=== PATIENT | female | born 1970 | race Caucasian/White ===

== ENCOUNTER → 2017-09-03 | Outpatient (CLI) | payer OTHER ==
[2017-09-03 09:58] LABS: ALT 34 U/L (9-52); AST 29 U/L (14-36); Albumin 4.7 g/dL (3.5-5.0); Alkaline Phosphatase 69 U/L (38-126); Anion Gap 9 mmol/L; Blood Urea Nitrogen 16 mg/dL (7-17); Calcium 9.7 mg/dL (8.4-10.2); Carbon Dioxide 29 mmol/L (22-30); Chloride 101 mmol/L (98-107); Cholesterol 263 mg/dL (<200); Glucose 88 mg/dL (74-99); Potassium 4.4 mmol/L (3.5-5.1); Sodium 139 mmol/L (137-145); Total Bilirubin 0.5 mg/dL (0.2-1.3); Total Protein 7.1 g/dL (6.3-8.2); Triglycerides 43 mg/dL (<150)
[2017-09-03 10:05] LABS: LDL Cholesterol,Calculated 102 mg/dL (0-99)
[2017-09-03 10:06] LABS: T4, Free (Free Thyroxine) 0.98 ng/dL (0.78-2.19)
[2017-09-03 10:20] LABS: HCT 39.6 % (34.0-46.0); HGB 12.8 gm/dL (11.4-16.0); MCH 29.4 pg (25.0-35.0); MCHC 32.4 g/dL (31.0-37.0); MCV 90.8 fL (80.0-100.0); Mean Platelet Volume 7.5; Platelet Count 280 k/uL (150-450); RBC 4.36 m/uL (3.80-5.40); RDW 12.7 % (11.5-15.5); WBC 3.5 k/uL (3.8-10.6)
[2017-09-03 10:30] LABS: HDL Cholesterol 152 mg/dL (40-60)
[2017-09-03 11:44] LABS: Eosinophils # (M) 0.21 k/uL (0-0.7); Monocytes # (M) 0.42 k/uL (0-1.0); Neutrophils # (M) 1.51 k/uL (1.3-7.7); Neutrophils % (M) 43 %; Nucleated Red Blood Cells 0 /100 WBC (0-0); Total Cells Counted 200
[2017-09-03 11:45] LABS: Anisocytosis (M) Present; Poikilocytosis (M) Present
== END | disposition home or self-care (01) ==
LOC: LABWHC1 08:56
PROVIDERS: ATTEND Family Medicine
DX: Z00.00 Encounter for general adult medical examination without abnormal findings (principal); E03.9 Hypothyroidism, unspecified
CPT/HCPCS: 36415; 80053; 80061; 82306; 84439; 84443; 85025

== ENCOUNTER → 2018-01-06 | Outpatient (CLI) | payer OTHER ==
[2018-01-06 13:51] LABS: T4, Free (Free Thyroxine) 0.89 ng/dL (0.78-2.19)
== END | disposition home or self-care (01) ==
LOC: LABWHC1 12:12
PROVIDERS: ATTEND Family Medicine
DX: E03.8 Other specified hypothyroidism (principal)
CPT/HCPCS: 36415; 84439; 84443; 84481

== ENCOUNTER → 2018-09-10 | Outpatient (CLI) | payer OTHER ==
[2018-09-10 08:42] LABS: HCT 45.2 % (34.0-46.0); HGB 14.5 gm/dL (11.4-16.0); MCHC 32.1 g/dL (31.0-37.0); MCV 93.3 fL (80.0-100.0); Mean Platelet Volume 7.2; Platelet Count 225 k/uL (150-450); RBC 4.84 m/uL (3.80-5.40); RDW 12.9 % (11.5-15.5)
[2018-09-10 10:21] LABS: Eosinophils # (M) 0.08 k/uL (0-0.7); Lymphocytes # (M) 0.84 k/uL (1.0-4.8); Monocytes # (M) 0.44 k/uL (0-1.0); Neutrophils # (M) 2.64 k/uL (1.3-7.7); Neutrophils % (M) 66 %; Nucleated Red Blood Cells 0 /100 WBC (0-0); Total Cells Counted 100
[2018-09-10 10:24] LABS: Poikilocytosis (M) Present
[2018-09-10 14:06] LABS: ALT 20 U/L (8-44); AST 24 U/L (13-35); Albumin/Globulin Ratio 2.47 (1.60-3.17); Alkaline Phosphatase 72 U/L (41-126); Calcium 9.5 mg/dL (8.7-10.3); Carbon Dioxide 30.4 mmol/L (21.6-31.8); Chloride 105 mmol/L (96-109); Cholesterol 228 mg/dL (0-200); Globulin 1.9 g/dL (1.6-3.3); Glucose 81 mg/dL (70-110); Potassium 4.4 mmol/L (3.5-5.5); Sodium 141 mmol/L (135-145); Total Bilirubin 0.8 mg/dL (0.3-1.2); Total Protein 6.6 g/dL (6.2-8.2); Triglycerides <50.0 mg/dL (0.0-149.0); VLDL Calculation 9.98 mg/dL (5.00-40.00)
== END ==
LOC: LABWHC1 07:30
PROVIDERS: ATTEND Family Medicine
DX: Z00.00 Encounter for general adult medical examination without abnormal findings (principal); E03.9 Hypothyroidism, unspecified
CPT/HCPCS: 36415; 80053; 80061; 82306; 84439; 84443; 84481; 85025

== ENCOUNTER → 2019-08-12 | Outpatient (CLI) | payer OTHER ==
--- NOTE | 2019-08-18 12:03 | MM ---
Reason for exam: screening (asymptomatic). Last mammogram was performed 11 months ago. History: Patient is nulliparous. Saline implants in both breasts, 2018. Benign excisional biopsy of the left breast. Physical Findings: A clinical breast exam by your physician is recommended on an annual basis and results should be correlated with mammographic findings. MG 3D Screen Mammo Imp/Cad Bilateral CC, MLO, and ID view(s) were taken. Prior study comparison: August 31, 2018, mammogram, performed at [facility]. August 25, 2017, mammogram, performed at [facility]. The breast tissue is heterogeneously dense. This may lower the sensitivity of mammography. No suspicious abnormality. Bilateral retropectoral saline implants. Left biopsy marker noted. ASSESSMENT: Negative, BI-RAD 1 RECOMMENDATION: Routine screening mammogram of both breasts in 1 year.
== END | disposition home or self-care (01) ==
LOC: RADMAMWWP 12:46
PROVIDERS: ATTEND Internal Medicine
DX: Z12.31 Encounter for screening mammogram for malignant neoplasm of breast (principal); Z98.82 Breast implant status
CPT/HCPCS: 77063; 77067

== ENCOUNTER → 2020-08-25 | Outpatient (CLI) | payer OTHER ==
--- NOTE | 2020-08-25 14:19 | MR ---
MRI left hip HISTORY: Pain in left thigh, posterior left thigh pain Multiplanar multisequence imaging obtained through the pelvis with associated images through the left proximal lower extremity rather than tailored to the head There are no plain films available for correlation. Semimembranosus semitendinosus tendons show a symmetric appearance. Muscle signal is symmetric. There is artifact over the proximal left lower extremity on fat saturation sequences. Bone marrow signal i s maintained. No free fluid within the pelvis. Urinary bladder shows a thickened wall possibly due to lack of distention. There is no pelvic adenopathy. No abnormal fluid collections. IMPRESSION: No abnormality evident to account for patient's symptoms.
== END | disposition home or self-care (01) ==
LOC: RADMRIMAIN 06:12
PROVIDERS: ATTEND Orthopaedic Surgery
DX: M79.652 Pain in left thigh (principal)

== ENCOUNTER → 2020-10-26 | Outpatient (CLI) | payer OTHER ==
--- NOTE | 2020-10-27 15:03 | MM ---
Reason for exam: screening (asymptomatic). Last mammogram was performed 1 year and 2 months ago. History: Patient is nulliparous. Silicone gel implants in both breasts, April 2020. Saline implants in both breasts, 2017. Benign excisional biopsy of the left breast. Taking estrogen. Taking progesterone. Physical Findings: A clinical breast exam by your physician is recommended on an annual basis and results should be correlated with mammographic findings. MG 3D Screen Mammo Imp/Cad Bilateral CC, MLO, and ID view(s) were taken. Prior study comparison: August 12, 2019, bilateral MG 3d screen mammo imp/cad. August 31, 2018, mammogram, performed at [facility]. There are scattered fibroglandular densities. No significant changes when compared with prior studies. ASSESSMENT: Benign, BI-RAD 2 RECOMMENDATION: Routine screening mammogram of both breasts in 1 year.
== END | disposition home or self-care (01) ==
LOC: RADMAMWWP 15:45
PROVIDERS: ATTEND Family Medicine
DX: Z12.31 Encounter for screening mammogram for malignant neoplasm of breast (principal)
CPT/HCPCS: 77063; 77067

== ENCOUNTER → 2021-12-03 | Outpatient (CLI) | payer OTHER ==
--- NOTE | 2021-12-04 09:29 | MM ---
Reason for Exam: Screening (asymptomatic). Last mammogram was performed 1 year(s) and 1 month(s) ago. Patient History: Menarche at age 12. Patient has no children. Hysterectomy at age 43. Currently using Estrogen. Currently using Progesterone. Benign Excisional Biopsy on the left side. 04/2020, Bilateral Implants. 2018, Bilateral Implants. Risk Values: Sue 5 year model risk: 1.3%. NCI Lifetime model risk: 11.6%. Prior Study Comparison: 08/31/2018 Screening Mammogram, [facility]. 08/12/2019 Bilateral Screening Mammogram, [facility]. 10/26/2020 Bilateral Screening Mammogram, [facility]. Tissue Density: The breast tissue is heterogeneously dense. This may lower the sensitivity of mammography. Findings: Analyzed By CAD. There is no suspicious group of microcalcifications or new suspicious mass in either breast. Benign calcifications bilaterally. Overall Assessment: Benign, BI-RAD 2 Management: Screening Mammogram of both breasts in 1 year. A clinical breast exam by your physician is recommended on an annual basis and results should be correlated with mammographic findings. Electronically signed and approved by: Rakan Guidry M.D. Radiologis
== END | disposition home or self-care (01) ==
LOC: RADMAMWWP 14:51
PROVIDERS: ATTEND Family Medicine
DX: Z12.31 Encounter for screening mammogram for malignant neoplasm of breast (principal)
CPT/HCPCS: 77067

== ENCOUNTER → 2022-05-15 | Outpatient (CLI) | payer OTHER ==
[2022-05-15 14:40] LABS: Basophils # (A) 0.03 X 10*3/uL (0.00-0.10); Basophils % (A) 0.7 %; Eosinophils # (A) 0.26 X 10*3/uL (0.04-0.35); HCT 43.5 % (37.2-46.3); HGB 13.8 g/dL (12.0-15.0); Immature Grans, Automated 0.2 %; Lymphocytes # (A) 1.06 X 10*3/uL (0.90-5.00); Lymphocytes % (A) 24.3 %; MCH 29.7 pg (27.0-32.0); MCHC 31.7 g/dL (32.0-37.0); MCV 93.8 fL (80.0-97.0); Mean Platelet Volume 9.8 fL (9.5-12.2); Monocytes # (A) 0.41 X 10*3/uL (0.20-1.00); Monocytes % (A) 9.4 %; NRBC Per 100 WBC 0 /100 WBCS (0.0-0.0); Neutrophils # (A) 2.59 X 10*3/uL (1.80-7.70); Neutrophils % (A) 59.4 %; Platelet Count 260 X 10*3/uL (140-440); RBC 4.64 X 10*6/uL (4.10-5.20); RDW 12.4 % (11.5-14.5); WBC 4.36 X 10*3/uL (4.50-10.00)
[2022-05-15 16:20] LABS: ALT 11 U/L (8-44); AST 13 U/L (13-35); African American GFR (CKD) 95.5 (60.0-200.0); Albumin 4.5 g/dL (3.8-4.9); Albumin/Globulin Ratio 2.73 (1.60-3.17); Alkaline Phosphatase 58 U/L (41-126); BUN/Creat Ratio 15.05 Ratio (12.00-20.00); Blood Urea Nitrogen 12.4 mg/dL (9.0-27.0); C Reactive Protein <0.30 mg/dL (0.00-0.80); Chloride 104 mmol/L (96-109); Ferritin 13.3 ng/mL (10.0-291.0); Globulin 1.7 g/dL (1.6-3.3); Glucose 84 mg/dL (70-110); Non-African American GFR(CKD) 82.4 (60.0-200.0); Potassium 4.2 mmol/L (3.5-5.5); Sodium 139 mmol/L (135-145); Total Protein 6.2 g/dL (6.2-8.2)
[2022-05-15 19:33] LABS: Insulin Level 2.3 mIU/mL (3.0-25.0)
[2022-05-15 21:15] LABS: Thyroid Peroxidase Antibodies <9.0 U/mL (0.0-33.0)
== END | disposition home or self-care (01) ==
LOC: LABWHC1 08:05
PROVIDERS: ATTEND Nurse Practitioner
DX: M25.50 Pain in unspecified joint (principal); N95.9 Unspecified menopausal and perimenopausal disorder; N39.490 Overflow incontinence; M54.2 Cervicalgia; E78.2 Mixed hyperlipidemia; R68.82 Decreased libido; R14.0 Abdominal distension (gaseous)
CPT/HCPCS: 36415; 80053; 82306; 82533; 82607; 82626; 82672; 82728; 82746; 83036; 83090; 83525; 83735; 84140; 84144; 84402; 84403; 84432; 84439; 84443; 84481; 84482; 85025; 86038; 86140; 86376

== ENCOUNTER → 2022-05-29 | Outpatient (CLI) | payer OTHER ==
[2022-05-29 14:28] LABS: Basophils # (A) 0.02 X 10*3/uL (0.00-0.10); Basophils % (A) 0.6 %; Eosinophils % (A) 6.1 %; HCT 44.5 % (37.2-46.3); HGB 13.9 g/dL (12.0-15.0); Immature Grans, Automated 0 %; Lymphocytes # (A) 0.96 X 10*3/uL (0.90-5.00); Lymphocytes % (A) 29.3 %; MCH 29.9 pg (27.0-32.0); MCHC 31.2 g/dL (32.0-37.0); MCV 95.7 fL (80.0-97.0); Mean Platelet Volume 10.1 fL (9.5-12.2); Monocytes # (A) 0.29 X 10*3/uL (0.20-1.00); Monocytes % (A) 8.8 %; NRBC Per 100 WBC 0 /100 WBCS (0.0-0.0); Neutrophils # (A) 1.81 X 10*3/uL (1.80-7.70); Neutrophils % (A) 55.2 %; Platelet Count 281 X 10*3/uL (140-440); RBC 4.65 X 10*6/uL (4.10-5.20); RDW 12.7 % (11.5-14.5); WBC 3.28 X 10*3/uL (4.50-10.00)
[2022-05-30 01:26] LABS: C Reactive Protein, High Sens <0.150 mg/L (0.000-3.000); Estradiol 74.3 pg/mL
== END | disposition home or self-care (01) ==
LOC: LABWHC1 07:46
PROVIDERS: ATTEND Family Medicine
DX: M25.50 Pain in unspecified joint (principal); N95.9 Unspecified menopausal and perimenopausal disorder; N39.490 Overflow incontinence; E78.2 Mixed hyperlipidemia; M54.2 Cervicalgia; R14.0 Abdominal distension (gaseous); R68.82 Decreased libido
CPT/HCPCS: 36415; 82627; 82670; 83735; 85025; 86141; 86800

== ENCOUNTER → 2022-11-06 | Outpatient (CLI) | payer OTHER ==
[2022-11-06 10:50] LABS: Basophils # (A) 0.03 X 10*3/uL (0.00-0.10); Basophils % (A) 0.8 %; Eosinophils # (A) 0.13 X 10*3/uL (0.04-0.35); Eosinophils % (A) 3.4 %; HCT 43.6 % (37.2-46.3); HGB 14.4 g/dL (12.0-15.0); Immature Grans, Automated 0.3 %; Lymphocytes # (A) 0.86 X 10*3/uL (0.90-5.00); Lymphocytes % (A) 22.5 %; MCH 31.4 pg (27.0-32.0); Mean Platelet Volume 10.5 fL (9.5-12.2); Monocytes # (A) 0.35 X 10*3/uL (0.20-1.00); Monocytes % (A) 9.2 %; NRBC Per 100 WBC 0 /100 WBCS (0.0-0.0); Neutrophils # (A) 2.44 X 10*3/uL (1.80-7.70); Neutrophils % (A) 63.8 %; Platelet Count 248 X 10*3/uL (140-440); RBC 4.59 X 10*6/uL (4.10-5.20); RDW 12.3 % (11.5-14.5); WBC 3.82 X 10*3/uL (4.50-10.00)
[2022-11-06 11:16] LABS: African American GFR (CKD) 95.3 (60.0-200.0); Albumin 4.8 g/dL (3.8-4.9); Albumin/Globulin Ratio 2.71 (1.60-3.17); Anion Gap 12.7 mmol/L (10.00-18.00); BUN/Creat Ratio 19.03 Ratio (12.00-20.00); Blood Urea Nitrogen 15.7 mg/dL (9.0-27.0); Calcium 9.5 mg/dL (8.7-10.3); Carbon Dioxide 25.1 mmol/L (20.0-27.5); Ferritin 67.8 ng/mL (10.0-291.0); Globulin 1.8 g/dL (1.6-3.3); Non-African American GFR(CKD) 82.2 (60.0-200.0); Potassium 4.2 mmol/L (3.5-5.5); T4, Free (Free Thyroxine) 1.36 ng/dL (0.800-1.800); Total Bilirubin 0.4 mg/dL (0.30-1.20); Total Protein 6.6 g/dL (6.2-8.2)
[2022-11-06 12:20] LABS: Estradiol 24.1 pg/mL; Testosterone 17.4 ng/mL (7.00-45.62)
== END | disposition home or self-care (01) ==
LOC: LABWHC1 07:03
PROVIDERS: ATTEND Nurse Practitioner
DX: M25.50 Pain in unspecified joint (principal); N95.9 Unspecified menopausal and perimenopausal disorder; N39.490 Overflow incontinence; E78.2 Mixed hyperlipidemia; M54.2 Cervicalgia; R68.82 Decreased libido; R14.0 Abdominal distension (gaseous)
CPT/HCPCS: 36415; 80053; 82533; 82627; 82670; 82728; 83735; 84140; 84144; 84402; 84403; 84439; 84443; 84481; 84482; 85025

== ENCOUNTER → 2023-01-20 | Outpatient (CLI) | payer OTHER ==
--- NOTE | 2023-01-21 09:00 | MM ---
Reason for Exam: Screening (asymptomatic). Last mammogram was performed 1 year(s) and 2 month(s) ago. Patient History: Menarche at age 12. Patient has no children. Hysterectomy at age 43. Currently using Estrogen. Currently using Progesterone. Benign Excisional Biopsy on the left side. 04/2020, Bilateral Implants. 2018, Bilateral Implants. Risk Values: Sue 5 year model risk: 1.4%. NCI Lifetime model risk: 11.2%. Prior Study Comparison: 08/12/2019 Bilateral Screening Mammogram, [facility]. 10/26/2020 Bilateral Screening Mammogram, [facility]. 12/03/2021 Bilateral MG screening mammo implant/CAD, [facility]. Tissue Density: The breast tissue is extremely dense which could obscure a lesion on mammography. Findings: Analyzed By CAD. There is no suspicious group of microcalcifications or new suspicious mass in either breast. Bilateral implants are intact. Overall Assessment: Benign, BI-RAD 2 Management: Screening Mammogram of both breasts in 1 year. . Patient should continue monthly self-breast exams. A clinical breast exam by your physician is recommended on an annual basis. This exam should not preclude additional follow-up of suspicious palpable abnormalities. Note on Sue scores and lifetime risk: 1. A Sue score greater than 3% is considered moderate risk. If this is the case, consider specialist referral to assess eligibility for a risk reducing agent. 2. If overall lifetime risk for the development of breast cancer is 20% or higher, the patient may qualify for future screening with alternating mammogram and breast MRI. Electronically signed and approved by: Meek Mortensen M.D. Radiologis
== END | disposition home or self-care (01) ==
LOC: RADMAMWWP 15:01
PROVIDERS: ATTEND Family Medicine
DX: Z12.31 Encounter for screening mammogram for malignant neoplasm of breast (principal)
CPT/HCPCS: 77063; 77067

== ENCOUNTER → 2023-05-01 | Outpatient (CLI) | payer OTHER ==
[2023-05-01 16:13] LABS: Basophils # (A) 0.03 X 10*3/uL (0.00-0.10); Basophils % (A) 0.9 %; Eosinophils # (A) 0.15 X 10*3/uL (0.04-0.35); Eosinophils % (A) 4.3 %; HCT 42.7 % (37.2-50.0); HGB 14.4 g/dL (12.0-17.0); Immature Grans, Automated 0 %; Lymphocytes # (A) 1.01 X 10*3/uL (0.90-5.00); Lymphocytes % (A) 29.3 %; MCH 32.4 pg (27.0-32.0); MCHC 33.7 g/dL (32.0-37.0); Mean Platelet Volume 10.2 FL (9.5-12.2); Monocytes # (A) 0.26 X 10*3/uL (0.20-1.00); Monocytes % (A) 7.5 %; NRBC Per 100 WBC 0 X 10*3/uL (0.00-0.01); Platelet Count 237 X 10*3/uL (140-440); RBC 4.45 X 10*6/uL (4.10-5.60); RDW 11.8 % (11.5-14.5); WBC 3.45 X 10*3/uL (4.50-10.00)
[2023-05-01 16:43] LABS: Progesterone 2.7 ng/mL
[2023-05-01 16:44] LABS: ALT 17 U/L (8-49); AST 17 U/L (13-35); Albumin 4.7 g/dL (3.8-4.9); Albumin/Globulin Ratio 2.61 Ratio (1.60-3.17); Alkaline Phosphatase 47 U/L (41-126); BUN/Creat Ratio 15.12 Ratio (12.00-20.00); Blood Urea Nitrogen 12.1 mg/dL (9.0-27.0); Calcium 9.6 mg/dL (8.7-10.3); Carbon Dioxide 27.2 mmol/L (21.6-31.8); Chloride 103 mmol/L (96-109); Ferritin 30.2 ng/mL (10.0-322.0); Globulin 1.8 g/dL (1.6-3.3); Glucose 80 mg/dL (70-110); Potassium 3.9 mmol/L (3.5-5.5); Sodium 140 mmol/L (135-145); T4, Free (Free Thyroxine) 1.18 ng/dL (0.80-1.80); Testosterone <10.00 ng/dL (7.00-780.10); Total Bilirubin 0.4 mg/dL (0.3-1.2); Total Protein 6.5 g/dL (6.2-8.2)
[2023-05-01 16:49] LABS: Estradiol <20.0 pg/mL
== END | disposition home or self-care (01) ==
LOC: LABWHC1 07:19
PROVIDERS: ATTEND Nurse Practitioner
DX: M25.50 Pain in unspecified joint (principal); N95.9 Unspecified menopausal and perimenopausal disorder; N39.490 Overflow incontinence; E78.2 Mixed hyperlipidemia; M54.2 Cervicalgia; R68.82 Decreased libido; R14.0 Abdominal distension (gaseous)
CPT/HCPCS: 36415; 80053; 82306; 82533; 82627; 82670; 82728; 83735; 84144; 84402; 84403; 84439; 84443; 84481; 84482; 85025

== ENCOUNTER → 2023-11-12 | Outpatient (CLI) | payer OTHER ==
[2023-11-12 10:31] LABS: Basophils # (A) 0.03 X 10*3/uL (0.00-0.10); Basophils % (A) 0.9 %; Eosinophils # (A) 0.21 X 10*3/uL (0.04-0.35); HGB 14.9 g/dL (12.0-17.0); Lymphocytes % (A) 28.6 %; MCH 31.4 pg (27.0-32.0); MCHC 33.1 g/dL (32.0-37.0); MCV 94.9 FL (80.0-97.0); Mean Platelet Volume 10.5 FL (9.5-12.2); Monocytes # (A) 0.29 X 10*3/uL (0.20-1.00); Monocytes % (A) 8.3 %; NRBC Per 100 WBC 0 X 10*3/uL (0.00-0.01); Neutrophils # (A) 1.96 X 10*3/uL (1.80-7.70); Neutrophils % (A) 55.9 %; Platelet Count 231 X 10*3/uL (140-440); RBC 4.74 X 10*6/uL (4.10-5.60); RDW 11.9 % (11.5-14.5)
[2023-11-12 12:11] LABS: % Iron Saturation 19.44 (12.00-50.00); Iron 77 UG/DL (50-175); Total Iron Binding Capacity 396 UG/DL (228-460)
[2023-11-12 12:12] LABS: ALT 25 U/L (8-49); AST 19 U/L (13-35); Albumin 4.8 g/dL (3.8-4.9); Albumin/Globulin Ratio 2.82 Ratio (1.60-3.17); Alkaline Phosphatase 53 U/L (41-126); Calcium 9.2 mg/dL (8.7-10.3); Carbon Dioxide 24.3 mmol/L (21.6-31.8); Chloride 109 mmol/L (96-109); Estradiol <20.0 pg/mL; Ferritin 49.9 ng/mL (10.0-322.0); Globulin 1.7 g/dL (1.6-3.3); Glucose 93 mg/dL (70-110); Potassium 4.2 mmol/L (3.5-5.5); Sodium 147 mmol/L (135-145); T4, Free (Free Thyroxine) 1.29 ng/dL (0.80-1.80); Testosterone <10.00 ng/dL (7.00-780.10); Total Bilirubin 0.5 mg/dL (0.3-1.2); Total Protein 6.5 g/dL (6.2-8.2)
[2023-11-12 13:29] LABS: Progesterone 2.8 ng/mL
== END | disposition home or self-care (01) ==
LOC: LABWHC1 06:53
PROVIDERS: ATTEND Nurse Practitioner
DX: M25.50 Pain in unspecified joint (principal); N95.9 Unspecified menopausal and perimenopausal disorder; N39.490 Overflow incontinence; M54.2 Cervicalgia; E78.2 Mixed hyperlipidemia; R14.0 Abdominal distension (gaseous); R68.2 Dry mouth, unspecified
CPT/HCPCS: 36415; 80053; 82306; 82533; 82627; 82670; 82728; 83540; 83550; 83735; 84144; 84270; 84402; 84403; 84439; 84443; 84481; 84482; 85025

== ENCOUNTER → 2024-04-22 | Outpatient (CLI) | payer OTHER ==
--- NOTE | 2024-04-29 14:20 | MM ---
Reason for Exam: Screening (asymptomatic). Last mammogram was performed 1 year(s) and 3 month(s) ago. Patient History: Menarche at age 12. Patient has no children. Postmenopausal. Currently using Estrogen. Currently using Progesterone. Benign Excisional Biopsy on the left side. 04/2020, Bilateral Implants. 2018, Bilateral Implants. Risk Values: Sue 5 year model risk: 1.4%. NCI Lifetime model risk: 11.0%. Prior Study Comparison: 10/26/2020 Bilateral Screening Mammogram, [facility]. 12/03/2021 Bilateral MG screening mammo implant/CAD, [facility]. 01/20/2023 Bilateral MG 3D screening mammo w/cad, [facility]. Tissue Density: The breasts are heterogeneously dense, which may obscure small masses. Findings: Analyzed By CAD. Bilateral breast implants appear intact. Right breast: There is no suspicious group of microcalcifications or new suspicious mass. Left breast: There is no suspicious group of microcalcifications or new suspicious mass. Overall Assessment: Negative, BI-RAD 1 Management: Screening Mammogram of both breasts in [address] [facility] will attempt to contact patient to return for supplemental views and ultrasound if indicated. Patient should continue monthly self-breast exams. A clinical breast exam by your physician is recommended on an annual basis. This exam should not preclude additional follow-up of suspicious palpable abnormalities. Note on Sue scores and lifetime risk: 1. A Sue score greater than 3% is considered moderate risk. If this is the case, consider specialist referral to assess eligibility for a risk reducing agent. 2. If overall lifetime risk for the development of breast cancer is 20% or higher, the patient may qualify for future screening with alternating mammogram and breast MRI. [facility], , 04/29/2024 2:18 PM. Electronically signed and approved by: Samuel Gomez DO
== END | disposition home or self-care (01) ==
LOC: RADMAMWWP 07:22
PROVIDERS: ATTEND Family Medicine
DX: Z12.31 Encounter for screening mammogram for malignant neoplasm of breast (principal); R92.333 Mammographic heterogeneous density, bilateral breasts; Z78.0 Asymptomatic menopausal state
CPT/HCPCS: 77063; 77067

== ENCOUNTER → 2024-11-23 | Outpatient (CLI) | payer OTHER ==
[2024-11-23 15:09] LABS: Basophils # (A) 0.02 X 10*3/uL (0.00-0.10); Basophils % (A) 0.6 %; Eosinophils # (A) 0.21 X 10*3/uL (0.04-0.35); Eosinophils % (A) 6.2 %; HCT 44.9 % (37.2-50.0); HGB 14.6 g/dL (12.0-17.0); Immature Grans, Automated 0 %; Lymphocytes % (A) 38.3 %; MCH 31.3 pg (27.0-32.0); MCHC 32.5 g/dL (32.0-37.0); MCV 96.1 FL (80.0-97.0); Monocytes # (A) 0.34 X 10*3/uL (0.20-1.00); NRBC Per 100 WBC 0 X 10*3/uL (0.00-0.01); Neutrophils # (A) 1.52 X 10*3/uL (1.80-7.70); Neutrophils % (A) 44.9 %; Platelet Count 257 X 10*3/uL (140-440); RBC 4.67 X 10*6/uL (4.10-5.60); RDW 12.8 % (11.5-14.5); WBC 3.39 X 10*3/uL (4.50-10.00)
[2024-11-23 15:52] LABS: ALT 22 U/L (8-49); AST 23 U/L (13-35); Albumin 4.3 g/dL (3.8-4.9); Albumin/Globulin Ratio 2.53 Ratio (1.60-3.17); Alkaline Phosphatase 60 U/L (41-126); Blood Urea Nitrogen 13.5 mg/dL (9.0-27.0); Calcium 9.2 mg/dL (8.7-10.3); Carbon Dioxide 24.2 mmol/L (21.6-31.8); Chloride 105 mmol/L (96-109); Chol/HDL Ratio 2.58 Ratio; Globulin 1.7 g/dL (1.6-3.3); Glucose 87 mg/dL (70-110); LDL Cholesterol,Calculated 123.3 mg/dL (0.0-131.0); Potassium 4.4 mmol/L (3.5-5.5); Sodium 141 mmol/L (135-145); Total Bilirubin 0.4 mg/dL (0.3-1.2); VLDL Calculation 9.52 mg/dL (5.00-40.00)
[2024-11-23 16:23] LABS: Follicle Stimulating Hormone 70.5 mIU/mL; Luteinizing Hormone 25.8 mIU/mL
[2024-11-23 20:51] LABS: Gliadin AB IgA, Deaminated Negative (Negative); Gliadin AB IgA, Unit <0.5 U/mL; Gliadin AB IgG, Deaminated Negative (Negative); Gliadin AB IgG, Unit <0.4 U/mL
== END | disposition home or self-care (01) ==
LOC: LABWHC1 07:19
DX: Z13.228 Encounter for screening for other metabolic disorders (principal); R19.8 Other specified symptoms and signs involving the digestive system and abdomen; R68.82 Decreased libido
CPT/HCPCS: 36415; 80053; 80061; 82306; 83001; 83002; 83036; 83516; 84443; 85025

== ENCOUNTER → 2025-01-10 | Outpatient (CLI) | payer OTHER ==
--- NOTE | 2025-01-10 15:15 | XR ---
EXAMINATION TYPE: XR cervical spine comp DATE OF EXAM: 01/10/2025 3:03 PM COMPARISON: None. CLINICAL INDICATION: Female, 54 years old with history of M54.2 CERVICALGIA, TECHNIQUE: Frontal, lateral, oblique, swimmers, and open mouth view of the cervical spine are obtaine d. FINDINGS: The cervical spine is visualized in its entirety from C1 thru the top of T1 level. It is s atisfactory in alignment without evidence of acute fracture or dislocation. The pre-vertebral soft t issue appears within normal limits. Moderate to severe multilevel there are no displaced narrowing an d spondylosis. The C1-C2 articulation is unremarkable on the open mouth view. The oblique images are within normal limits. IMPRESSION: No acute fracture or dislocation is seen in the cervical spine.ICD 10 NO FRACTURE, INITI AL EVALUATION [facility], , 01/10/2025 3:13 PM
== END | disposition home or self-care (01) ==
LOC: RADXRMAIN 14:37
DX: M54.2 Cervicalgia (principal)
CPT/HCPCS: 72050